=== PATIENT | male | born 1975 | race Caucasian/White ===

== ENCOUNTER 2017-05-05 17:53 | Emergency (ER) | payer MEDICAID ==
[~2017-05-05] VITALS: Ht 177.8 cm; Wt 111.1 kg
[2017-05-05 19:25] VITALS: BP 133/92
== END 2017-05-05 19:45 | disposition home or self-care (01) ==
LOC: ER 17:56
DX: S93.401A Sprain of unspecified ligament of right ankle, initial encounter (principal); W22.09XA Striking against other stationary object, initial encounter; F17.210 Nicotine dependence, cigarettes, uncomplicated; Y93.89 Activity, other specified; Y99.8 Other external cause status; Y92.89 Other specified places as the place of occurrence of the external cause
CPT/HCPCS: 29515; 73610

== ENCOUNTER 2019-07-26 13:16 | Emergency (ER) | payer MEDICAID ==
[~2019-07-26] VITALS: Ht 177.8 cm; Wt 90.7 kg
[2019-07-26 16:08] VITALS: BP 130/89
== END 2019-07-26 16:05 | disposition home or self-care (01) ==
LOC: ER 13:16
DX: M70.21 Olecranon bursitis, right elbow (principal); K21.9 Gastro-esophageal reflux disease without esophagitis; F17.210 Nicotine dependence, cigarettes, uncomplicated; Y93.89 Activity, other specified
CPT/HCPCS: 73080

== ENCOUNTER 2021-01-11 16:39 | Emergency (ER) | payer MEDICAID ==
[~2021-01-11] VITALS: Ht 177.8 cm; Wt 100.2 kg
[2021-01-11 19:02] VITALS: BP 110/69
== END 2021-01-11 20:10 | disposition home or self-care (01) ==
LOC: ER 16:39
DX: S46.911A Strain of unspecified muscle, fascia and tendon at shoulder and upper arm level, right arm, initial encounter (principal); K21.9 Gastro-esophageal reflux disease without esophagitis; I10 Essential (primary) hypertension; Z87.891 Personal history of nicotine dependence; V86.56XA Driver of dirt bike or motor/cross bike injured in nontraffic accident, initial encounter; Y93.89 Activity, other specified; Y92.89 Other specified places as the place of occurrence of the external cause; Y99.8 Other external cause status
CPT/HCPCS: 73030

== ENCOUNTER 2021-05-22 19:42 | Emergency (ER) | payer MEDICAID ==
[~2021-05-22] VITALS: Ht 177.8 cm; Wt 104.3 kg
[2021-05-23 04:01] VITALS: BP 141/84
== END 2021-05-23 04:25 | disposition home or self-care (01) ==
LOC: ER 19:44
DX: S91.202A Unspecified open wound of left great toe with damage to nail, initial encounter (principal); B35.1 Tinea unguium; I10 Essential (primary) hypertension; K21.9 Gastro-esophageal reflux disease without esophagitis; Z87.891 Personal history of nicotine dependence; X58.XXXA Exposure to other specified factors, initial encounter; Y93.89 Activity, other specified; Y92.89 Other specified places as the place of occurrence of the external cause; Y99.8 Other external cause status
CPT/HCPCS: 11730

== ENCOUNTER 2022-04-09 21:02 | Emergency (ER) | payer MEDICAID ==
[2022-04-09 22:41] LABS: BUN/Creatinine Ratio 27.8; Calcium 9.1 mg/dL (8.5-10.1); Magnesium 2.5 mg/dL (1.6-2.6); Potassium 4.3 mmol/L (3.5-5.1)
[2022-04-09 22:43] LABS: INR 1.4 (0.9-1.15); Partial Thromboplastin Time 42.3 sec (24.6-33.4)
[2022-04-09 22:56] LABS: Bilirubin, Total 6.7 mg/dL (0.2-1.0); Total Protein 6.9 g/dL (6.4-8.2)
[2022-04-09 22:59] LABS: White Blood Cell 9.2 10^3/uL (4.4-10.8)
[2022-04-09 23:00] LABS: Hematocrit 46.1 % (41.0-53.0); Mean Corpuscular Hgb Conc. 32.7 g/dL (32.0-36.0); Mean Corpuscular Volume 85.7 fL (80.0-100.0); Red Blood Cells 5.38 10^6/uL (4.5-5.90)
[2022-04-09 23:03] LABS: Red Cell Distribution Width 22.7 % (11.8-14.3)
[2022-04-09 23:05] LABS: Basophils % (manual) 0 (0.0-2.0); Blast Cells 0; Eosinophils % (manual) 0 (0-7); Metamyelocytes % 0; Myelocytes % 0; Promyelocytes % 0; Reactive Lymphocytes 0
[2022-04-09] MEDS ORDERED: FUROSEMIDE 40 MG/4 ML VIAL IV ONE (23:15)
[2022-04-09] MEDS ORDERED: SPIRONOLACTONE 25 MG TAB PO ONE (23:15)
[2022-04-09] MEDS ORDERED: METOCLOPRAMIDE HCL 5MG/ml INJ 2ml VIAL IV ONE (23:15)
[2022-04-09] MEDS ORDERED: ONDANSETRON HCL 4 MG/2 ML VIAL IV ONE (23:15)
[2022-04-09 23:17] VITALS: BP 124/89
[2022-04-09 23:28] LABS: Band Neutrophils % (manual) 2; Lymphocytes % (manual) 20 (10.0-50.0); Monocytes % (manual) 4 (0-12)
[2022-04-10 00:45] LABS: Urine Bacteria NONE SEEN /hpf (None Seen); Urine Blood Negative /uL (Negative); Urine Hyaline Cast MANY /lpf (0 - 2); Urine Mucus FEW (None Seen); Urine Specific Gravity 1.018 (1.001-1.035); Urine WBC 1 /hpf (0 - 3)
== END 2022-04-10 02:18 | disposition home or self-care (01) ==
LOC: ER 21:02 → EDBD 21:02 → ER 04-10 02:18
DX: K70.31 Alcoholic cirrhosis of liver with ascites (principal); C79.2 Secondary malignant neoplasm of skin; R60.1 Generalized edema; K21.9 Gastro-esophageal reflux disease without esophagitis; I10 Essential (primary) hypertension; Z87.891 Personal history of nicotine dependence
CPT/HCPCS: 36415; 71045; 74176; 80053; 81001; 82140; 83735; 83880; 84484; 85007; 85027; 85610; 85730; 93005; 96374; 96375; 99285; J1940; J2405; J2765